=== PATIENT | male | born 2000 | race American Indian/Alaskan Native ===

== ENCOUNTER 2021-12-22 15:36 | Emergency (ER) | payer MEDICAID, OTHER ==
[2021-12-22 16:00] VITALS: BP 139/88; PULSE 75
[2021-12-22] MEDS ORDERED: Acetaminophen 500 MG Tab PO ONE (16:45)
[2021-12-22] MEDS ORDERED: Midazolam 1 MG/ML 2 ML SDV IVPUSH ONE (17:23)
== END 2021-12-22 18:20 | disposition home or self-care (01) ==
LOC: DL.ED 15:36
DX: S62.317A Displaced fracture of base of fifth metacarpal bone, left hand, initial encounter for closed fracture (principal); W22.09XA Striking against other stationary object, initial encounter
CPT/HCPCS: 26670; 73120; 99283; A9270; J2250